=== PATIENT | female | born 1990 | race Caucasian/White ===

== ENCOUNTER 2022-12-06 10:07 | Emergency (ER) | payer OTHER ==
[~2022-12-06] VITALS: Ht 162.6 cm; Wt 80.5 kg
[2022-12-06 10:25] VITALS: BP 129/75
--- NOTE | 2022-12-06 10:52 | NUR ---
Lab at bedside.
[2022-12-06 10:59] LABS: BASOPHILS % (AUTO) 0.4 % (0.0-2.0); EOSINOPHILS # (AUTO) 0.2 K/uL (0-0.4); EOSINOPHILS % (AUTO) 3.8 % (0.0-4.0); HEMATOCRIT 36.7 % (36-48); HEMOGLOBIN 12.2 g/dL (12.0-16.0); LYMPHOCYTES # (AUTO) 1.5 K/uL (2.5-16.5); LYMPHOCYTES % (AUTO) 24.3 % (20.5-51.1); MEAN CORPUSCULAR HEMOGLOBIN 27 pg (27-31); MEAN CORPUSCULAR HGB CONC 33 g/dL (33-37); MEAN CORPUSCULAR VOLUME 82.7 fL (80-94); MONOCYTES # (AUTO) 0.4 K/uL (0.8-1.0); MONOCYTES % (AUTO) 6.4 % (1.7-9.3); NEUTROPHILS % (AUTO) 65.1 % (42.2-75.2); PLATELET COUNT (AUTO) 185 K/uL (140-450); RED BLOOD CELL COUNT(AUTO) 4.44 MIL/uL (4.20-5.40); WHITE BLOOD COUNT (AUTO) 6.1 K/uL (4.8-10.8)
--- NOTE | 2022-12-06 11:01 | NUR ---
32 y/o female c/o pelvic cramping. Patient reports being told she was told she is miscarrying on 11/06/22 and never made a follow up appointment. Patient has 6/10 intermittent cramping pain. Patient states she took Ibuprofen for pain. LMP 11/06/22 [id number] Medical History: Denies NKDA
[2022-12-06 11:03] LABS: BILIRUBIN,URINE NEGATIVE (NEGATIVE); BLOOD, URINE 1+ (NEGATIVE); COLOR,URINE YELLOW (YELLOW); LEUKOCYTE ESTERASE ,URINE TRACE (NEGATIVE); NITRITE, URINE POSITIVE (NEGATIVE); PH,URINE 7.5 (5.0-9.0); UGLUCOSE NEGATIVE (NEGATIVE)
[2022-12-06 11:04] LABS: APPEARANCE,URINE SLIGHTLY HAZY (CLEAR)
--- NOTE | 2022-12-06 11:14 | NUR ---
Ultrasound at bedside.
[2022-12-06] MEDS ORDERED: ONDA8TAB87 PO (12:51)
[2022-12-06] MEDS ORDERED: IBUP-2213 PO (12:51)
[2022-12-06] MEDS ORDERED: NITR100C7 PO (12:51)
[2022-12-06 13:00] VITALS: BP 100/62
--- NOTE | 2022-12-06 13:00 | NUR ---
Patient discharged with v/s stable. Written and verbal after care instructions given and explained. Patient alert, oriented and verbalized understanding of instructions. Ambulatory with steady gait. All questions addressed prior to discharge. ID band removed. Patient advised to follow up with PMD. Rx of IBUPROFEN, MACROBID, ZOFRAN (SENT) given. Patient educated on indication of medication including possible reaction and side effects. Opportunity to ask questions provided and answered.
--- NOTE | 2022-12-06 13:01 | NUR ---
The patient's care was reviewed and supervised by Virginia Issa, RN, RN.
== END 2022-12-06 13:00 | disposition home or self-care (01) ==
LOC: MED 10:07
DX: O23.41 Unspecified infection of urinary tract in pregnancy, first trimester (principal); N39.0 Urinary tract infection, site not specified; Z3A.01 Less than 8 weeks gestation of pregnancy; Z98.890 Other specified postprocedural states
CPT/HCPCS: 36415; 76830; 81001; 81025; 84702; 85025; 87086; 99284; Q0092